=== PATIENT | male | born 1950 | race Caucasian/White ===

== ENCOUNTER → 2016-07-07 | Outpatient (CLI) | payer MEDICARE ==
[2016-07-07 14:34] LABS: BUN 16 mg/dL (7-18)
[2016-07-07 14:35] LABS: GFR (ESTIMATED) 96 ML/MIN (>60)
== END ==
LOC: CARL-LAB 09:33
PROVIDERS: Internal Medicine Adolescent Medicine
DX: E11.9 Type 2 diabetes mellitus without complications (principal)

== ENCOUNTER → 2016-12-12 | Outpatient (CLI) | payer MEDICARE ==
[2016-12-12 15:59] LABS: BUN 15 mg/dL (7-18)
[2016-12-12 16:08] LABS: GFR (ESTIMATED) 96 ML/MIN (>60)
== END ==
LOC: CARL-LAB 09:48
PROVIDERS: Internal Medicine Adolescent Medicine
DX: E11.9 Type 2 diabetes mellitus without complications (principal)